=== PATIENT | male | born 2000 | race Hispanic/Latino ===

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

== ENCOUNTER 2021-08-22 17:48 | Emergency (ER) | payer MEDICAID ==
[~2021-08-22] VITALS: Ht 177.8 cm; Wt 90.7 kg
[2021-08-22 19:00] LABS: APPEARANCE,URINE Clear (CLEAR); BILIRUBIN,URINE Negative (NEGATIVE); COLOR,URINE Yellow (YELLOW); GLUCOSE, URINE (UA) Negative (NEGATIVE); KETONES,URINE 15 mg/dL (NEGATIVE); LEUKOCYTE ESTERASE ,URINE Negative (NEGATIVE); NITRATE,URINE Negative (NEGATIVE); OCCULT BLOOD,URINE Negative (NEGATIVE); PROTEIN,URINE Negative (NEGATIVE)
[2021-08-22] MEDS ORDERED: MAG/ALUM/SIMETH 30 ML UDCUP PO SCH (19:00)
[2021-08-22] MEDS ORDERED: LIDOCAINE HCL 2% VISCOUS 15 ML UDCUP PO SCH (19:00)
[2021-08-22 20:58] LABS: BASOPHILS % (AUTO) 0.5 % (0.0-5.0); EOSINOPHILS % (AUTO) 0.9 % (0.0-8.0); HEMATOCRIT 44.7 % (42-54); LYMPHOCYTES % (AUTO) 25.8 % (21.0-51.0); MEAN CORPUSCULAR HEMOGLOBIN 29.1 pg (27.0-33.0); MEAN CORPUSCULAR HGB CONC 33.6 g/dL (32.0-36.0); MEAN CORPUSCULAR VOLUME 86.6 fL (80-100); MONOCYTES % (AUTO) 14.8 % (3.0-13.0); NEUTROPHILS % (AUTO) 57.5 % (40.0-77.0); PLATELET COUNT (AUTO) 235 K/uL (130-400); RED BLOOD CELL COUNT(AUTO) 5.16 MIL/uL (4.50-6.20); RED CELL DISTRIBUTION WIDTH 12.6 % (11.0-15.5); WHITE BLOOD COUNT (AUTO) 8.1 K/uL (4.8-10.8)
[2021-08-22 21:08] LABS: CREATININE 0.9 mg/dL (0.5-1.5); POTASSIUM 3.5 mmol/L (3.5-5.1)
[2021-08-22 21:13] LABS: ALBUMIN 3.6 g/dL (3.5-5.0); BILIRUBIN,TOTAL 0.3 mg/dL (0.2-1.0); TOTAL PROTEIN, SERUM 7.3 g/dL (6.0-8.3)
[2021-08-22] MEDS ORDERED: PANT40TA54 PO (21:51)
[2021-08-22] MEDS ORDERED: DICY20TA2 PO (21:51)
[2021-08-22] MEDS ORDERED: ONDA4TAB4 PO (21:51)
[2021-08-22 22:28] VITALS: BP 119/71
== END 2021-08-22 22:28 | disposition home or self-care (01) ==
LOC: EDH 17:48
DX: K29.00 Acute gastritis without bleeding (principal); K21.9 Gastro-esophageal reflux disease without esophagitis; Z79.899 Other long term (current) drug therapy
CPT/HCPCS: 36415; 80053; 81003; 82150; 83690; 85025

== ENCOUNTER 2024-09-29 12:42 | Emergency (ER) | payer SELFPAY ==
[~2024-09-29] VITALS: Ht 175.3 cm; Wt 99.8 kg
[~2024-09-29 12:42] MED LIST: DICY20TA2 PO; ONDA4TAB4 PO; PANT40TA54 PO
--- NOTE | 2024-09-29 12:48 | NUR ---
PT JUST NOW PLACED IN MY ED BED 11
[2024-09-29 13:05] LABS: APPEARANCE,URINE CLEAR (CLEAR); BILIRUBIN,URINE NEGATIVE (NEGATIVE); COLOR,URINE COLORLESS (YELLOW); GLUCOSE, URINE (UA) NEGATIVE (NEGATIVE); KETONES,URINE NEGATIVE (NEGATIVE); LEUKOCYTE ESTERASE ,URINE NEGATIVE Leu/uL (NEGATIVE); NITRATE,URINE NEGATIVE (NEGATIVE); OCCULT BLOOD,URINE NEGATIVE (NEGATIVE); PH,URINE 7.5 (5.0-8.0); PROTEIN,URINE NEGATIVE (NEGATIVE); UROBILINOGEN,URINE 0.2 mg/dL (0.2-1.0)
[2024-09-29 13:11] LABS: ADD UA MICROSCOPIC NO
[2024-09-29] MEDS: AZITHROMYCIN 250 MG TABLET PO ONE (13:18)
[2024-09-29] MEDS: cefTRIAXone 1G VIAL IM ONE (13:18)
--- NOTE | 2024-09-29 13:22 | ERN ---
ED Note History of Present Illness Stated Complaint: PENILE D/C Chief Complaint: Penis Problem Time Seen by MD: 12:48 Time Seen by Midlevel: 12:48 Dictation: The patient is a 24-year-old male with no past medical history who presents to the emergency department with complaints of one week of burning urination, white and yellow penile discharge. Patient reports having multiple sex partners, not using protection. Denies any fevers, nausea vomiting or diarrhea. Allergies: Coded Allergies: No Known Drug Allergies (Unverified Allergy, Unknown, 10/09/19) Home Meds Active Scripts Ondansetron HCl (Zofran) 4 Mg Tablet, 4 MG PO Q8H PRN for NAUSEA/VOMITING for 3 Days, #9 TAB 0 Refills Prov:PAMELA JOHNSON 08/22/21 Dicyclomine HCl (Bentyl) 20 Mg Tab, 20 MG PO BID for 5 Days, #10 TAB Prov:PAMELA JOHNSON 08/22/21 Pantoprazole Sodium (Pantoprazole Sodium) 40 Mg Tablet.dr, 40 MG PO DAILY for 14 Days, #14 TAB Prov:PAMELA JOHNSON 08/22/21 Past Medical History Past Medical History: No Pertinent History Surgical History: None Social History: Negative, Lives with family RN Note Reviewed/Agreed w/PFSH: Yes Review of System Dictation Constitutional: Negative for fever,chills, and weight loss Eyes: Negative for injury, pain,redness, and discharge ENT: Negative for injury,pain or swelling Cardiovascular: Negative for chest pain, palpitations, and edema Respiratory: Negative for shortness of breath, cough, and wheezing, Abdomen/GI: Negative for abdominal pain, nausea, vomiting, diarrhea, and constipation Back: Negative for injury and pain : Negative for injury, bleeding and positive for burning urination, penile discharge MS/Extremity: Negative for injury and deformity Skin: Negative for rash, and discoloration Neuro: Negative for headache, weakness, numbness, tingling, and seizure Psych: Negative for suicide ideation, homicidal ideation, and hallucinations Initial Vital Sign VS Vital Signs Date Time Temp Pulse Resp B/P (MAP) Pulse Ox O2 Delivery O2 Flow Rate FiO2 09/29/24 12:43 98.6 82 18 134/86 98 09/29/24 13:32 Room Air* 0 21 Physical Exam Dictation Vital Signs reviewed General Appearance: Alert, oriented x 3, no acute distress, well developed, nourished. Head and Face: non-traumatic. Eyes: PERRL, pink conjunctivas, eyelid no trauma, anterior chamber with arcus senilis. Ears: Pinnas intact and no signs of trauma or erythema ear canals clear and no discharge TM no erythema Nose: No discharge, no bleeding. Oropharynx: Mouth normal, tongue pink. pharynx clear,no erythema, tonsils no exudates, no abscesses noted, mucous membrane moist Neck: Supple, non-tender, no thyromegaly, no masses, no JVD, no bruits Breast:Deferred Chest:No tenderness, no crepitus, no paradoxical movement, no retractions Lungs:Clear, well-ventilated, symmetric, no rales, no wheezing, no rhonchi, no stridor, good breath sounds bilaterally Heart: Regular rate, regular rhythm, no murmur, no gallops Vascular: no peripheral edema, Abdomen: Soft, positive bowel sounds, nondistended, no guarding, nontender, no rebound, no masses no hepatomegaly, no splenomegaly, no Ham's sign, no hernias. Rectal: Deferred Genital: No wounds, no active discharge, Neurological: Normal speech, motor function intact, sensory function intact Musculoskeletal: Neck nontender, full range of motion, back nontender, full range of motion, Extremities: nontender, full range of motion Skin: Color pink, dry, no turgor, no rash, no lacerations, no abrasions, no contusions. Lymphatic: Deferred Results (Laboratory/Radiology) Laboratory/Radiology Laboratory Tests Test 09/29/24 12:57 Urine Color COLORLESS (YELLOW) Urine Appearance CLEAR (CLEAR) Urine pH 7.5 (5.0-8.0) Urine Specific [place] 1.016 (1.001-1.031) Urine Protein NEGATIVE mg/dL (NEGATIVE) Urine Glucose (UA) NEGATIVE mg/dL (NEGATIVE) Urine Ketones NEGATIVE mg/dL (NEGATIVE) Urine Occult Blood NEGATIVE (NEGATIVE) Urine Nitrate NEGATIVE (NEGATIVE) Urine Bilirubin NEGATIVE mg/dL (NEGATIVE) Urine Urobilinogen 0.2 mg/dL (0.2-1.0) Urine Leukocyte Esterase NEGATIVE Venita/uL Labs Reviewed?: Yes ED Course ED Course Orders Procedure Category Date Status Time Urinalysis Profile LAB 09/29/24 Complete 12:57 Chlamydia & Gc Pcr GAGE 09/29/24 In Process 12:57 Ceftriaxone 1g Vial PHA 09/29/24 Complete (Rocephine 1g Inj) 13:00 Azithromycin PHA 09/29/24 Complete (Zithromax) 13:00 Current Medications Medications (Trade) Dose Ordered Sig/Ginger Route PRN Reason Start Time Stop Time Status Last Admin Dose Admin Azithromycin (Zithromax) 1,000 mg ONCE ONCE PO 09/29/24 13:00 09/29/24 13:01 DC 09/29/24 13:18 Ceftriaxone Sodium (ROCEphine 1G INJ) 1 gm ONCE ONCE IM 09/29/24 13:00 09/29/24 13:01 DC 09/29/24 13:18 Vital Signs Date Time Temp Pulse Resp B/P (MAP) Pulse Ox O2 Delivery O2 Flow Rate FiO2 09/29/24 13:32 98.1 81 18 129/71 98 Room Air* 0 21 09/29/24 12:43 98.6 82 18 134/86 98 Medical Decision Making MDM The patient is a 24-year-old male with no past medical history who presents to the emergency department with complaints of one week of burning urination, white and yellow penile discharge. Patient reports having multiple sex partners, not using protection. Denies any fevers, nausea vomiting or diarrhea. Urinalysis unremarkable. Pending gonorrhea and chlamydia but patient will be treated patient instructed to follow up. On physical exam patient has no wounds to penis. Nurse item processor. Differential diagnosis: STI, UTI, dysuria Need for hospitalization: Patient does not meet criteria for hospitalization. There are no social concerns with this patient. DX & DISP Disposition: Discharge Departure Impression: Primary Impression: Penile discharge Additional Impression: Dysuria Condition: Stable Additional Instructions: Please follow up with your primary doctor for full STD panel. Follow up on culture results. FOLLOW-UP WITH PRIMARY CARE PROVIDER IN 1 TO 2 DAYS. TAKE MEDICATIONS DIRECTED HERE IN THE EMERGENCY ROOM. OKAY TO CONTINUE HOME MEDICATIONS UNLESS OTHERWISE DISCUSSED DURING YOUR VISIT IN THE EMERGENCY ROOM TODAY. RETURN TO YOUR NEAREST EMERGENCY ROOM IF SYMPTOMS WORSEN OR IF THERE IS NO IMPROVEMENT. CALL 911 IF YOU NEED IMMEDIATE ASSISTANCE. TAKE TYLENOL OR MOTRIN [id number] NEEDED AND IF NO CONTRAINDICATIONS ARE PRESENT. INCREASE ORAL HYDRATION. A WOUND CULTURE OR URINE CULTURE WAS ORDERED HERE IN THE EMERGENCY ROOM DEPARTMENT PLEASE FOLLOW-UP WITH PRIMARY CARE PROVIDER AND ADVISE THEM TO GET REPEAT PORTS FROM OUR FACILITY. IF YOU HAD ANY ZAHIRA WRAP/SPLINTS THAT WERE APPLIED HERE, PLEASE DO NOT REMOVE THEM UNTIL YOU SEE YOUR PRIMARY CARE OR SPECIALTY. Referrals: [facility] (PCP) I have reviewed the case, and I agree with, Diagnosis and Plan I performed this substantive portion of this visit. I have reviewed and personally made and approve the management plan that is documented in the note by myself or the ELVER. I acknowledge full responsibility for the patient's management plan. CAROLE ASHFORD Sep 29, 2024 13:21 CARY VACA MD Sep 29, 2024 18:34
[2024-09-29 13:32] VITALS: BP 129/71; PULSE 81; RESP 18; TEMP 98.1; O2SAT 98
== END 2024-09-29 13:33 | disposition home or self-care (01) ==
LOC: EDH 12:42
DX: R36.9 Urethral discharge, unspecified (principal); R30.0 Dysuria
CPT/HCPCS: 99283; 87491; 87591; 81003; 96372; J0696